=== PATIENT | male | born 1985 | race Caucasian/White ===

== ENCOUNTER 2020-07-07 13:25 | Emergency (ER) | payer BC ==
[2020-07-07] MEDS ORDERED: Sodium Chloride 0.9% 10 ML Syringe FLUSH PRN (14:57)
[2020-07-07] MEDS ORDERED: Ondansetron 4 MG/2 ML SDV IVPUSH ONE (15:00)
[2020-07-07] MEDS ORDERED: HYDROmorphone 1 MG/ML Syringe IVPUSH ONE (15:00)
[2020-07-07] MEDS ORDERED: Sodium Chloride 0.9% 1,000 ML IV ONE (15:00)
--- NOTE | 2020-07-07 15:22 | EDM.PDOC ---
ED HPI GENERAL MEDICAL PROBLEM - General Chief Complaint: Abdominal Pain Stated Complaint: ABDOMINAL PAIN Time Seen by Provider: 07/07/20 14:45 Source of Information: Reports: Patient, RN Notes Reviewed History Limitations: Reports: No Limitations - History of Present Illness INITIAL COMMENTS - FREE TEXT/NARRATIVE: Patient is 35 year old male who presents to the ED for his lower abdomen pain. He notes that this started this AM; and this seems to be located mostly in his lower abdomen. He states that is just hurts and is worsening. States he woke up with the pain. He has not had this pain before ever. He denies any fever/ chills, n/v/d, cough/SOB. He states that he has had a normal BM this am for himself. He denies any urinary issues. He has no primary care provider. This pain does not seem to radiate anywhere. Bilateral Lower Abdomen Pain Score (Numeric/FACES): 8 - Related Data Allergies Allergy/AdvReac Type Severity Reaction Status Date / Time cefaclor [From [facility]] Allergy Severe Cannot Verified 07/07/20 14:06 Remember Home Meds: Home Meds . [No Known Home Meds] 07/07/20 [History] Past Medical History - Past Health History Medical/Surgical History: Denies Medical/Surgical History Social & Family History - Tobacco Use Tobacco Use Status *Q: Never Tobacco User - Caffeine Use Caffeine Use: Reports: Coffee - Recreational Drug Use Recreational Drug Use: No ED ROS GENERAL - Review of Systems Review Of Systems: Comprehensive ROS is negative, except as noted in HPI. ED EXAM, GI/ABD - Physical Exam Exam: See Below Exam Limited By: No Limitations General Appearance: Alert, WD/WN, No Apparent Distress Eyes: Bilateral: Normal Appearance Respiratory/Chest: No Respiratory Distress, Lungs Clear, Normal Breath Sounds, No Accessory Muscle Use, Chest Non-Tender Cardiovascular: Normal Peripheral Pulses, Regular Rate, Rhythm, No Edema GI/Abdominal Exam: Normal Bowel Sounds, Soft, No Distention, No Mass, Tender (lower abdomen mainly) Extremities: Normal Inspection, Normal Capillary Refill Neurological: Alert, Oriented, Normal Cognition, No Motor/Sensory Deficits Psychiatric: Normal Affect, Normal Mood Skin Exam: Warm, Dry, Intact, Normal Color, No Rash Course - Vital Signs Last Recorded V/S: Last Vital Signs Temp 96.3 F L 07/07/20 14:03 Pulse 80 04/19/21 14:03 Resp 16 07/07/20 14:03 BP 138/85 07/07/20 14:03 Pulse Ox 97 07/07/20 14:03 - Orders/Labs/Meds Orders: Active Orders 24 hr Category Date Time Status Peripheral IV Care [RC] . DIRECTED Care 07/07/20 14:57 Active CULTURE URINE [RM] Routine Lab 07/07/20 17:47 Ordered Sodium Chloride 0.9% [Saline Flush] Med 07/07/20 14:57 Active 10 ml FLUSH ASDIRECTED PRN Peripheral IV Insertion Adult [OM.PC] Routine Oth 07/07/20 14:57 Ordered Medication Orders Sodium Chloride (Sodium Chloride 0.9% 10 Ml Syringe) 10 ml FLUSH ASDIRECTED PRN PRN Reason: Keep Vein Open Last Admin: 07/07/20 15:09 Dose: 10 ml Documented by: TRISHA Labs: Laboratory Tests 07/07/20 07/07/20 07/07/20 Range/Units 14:35 14:35 14:35 WBC 14.29 H (4.23-9.07) K/mm3 RBC 5.09 (4.63-6.08) M/mm3 Hgb 15.1 (13.7-17.5) gm/dl Hct 46.1 (40.1-51.0) % MCV 90.6 (79.0-92.2) fl MCH 29.7 (25.7-32.2) pg MCHC 32.8 (32.2-35.5) g/dl RDW Std Deviation 44.6 H (35.1-43.9) fL Plt Count 353 H (163-337) K/mm3 MPV 9.8 (9.4-12.3) fl Neut % (Auto) 86.0 H (34.0-67.9) % Lymph % (Auto) 9.0 L (21.8-53.1) % Stephens % (Auto) 4.6 L (5.3-12.2) % Eos % (Auto) 0.1 L (0.8-7.0) Baso % (Auto) 0.1 (0.1-1.2) % Neut # (Auto) 12.27 H (1.78-5.38) K/mm3 Lymph # (Auto) 1.29 L (1.32-3.57) K/mm3 Stephens # (Auto) 0.66 (0.30-0.82) K/mm3 Eos # (Auto) 0.02 L (0.04-0.54) K/mm3 Baso # (Auto) 0.02 (0.01-0.08) K/mm3 Manual Slide Review Abnormal smear Sodium 139 (136-145) mEq/L Potassium 3.8 (3.5-5.1) mEq/L Chloride 100 (98-107) mEq/L Carbon Dioxide 28 (21-32) mEq/L Anion Gap 14.8 (5-15) BUN 13 (7-18) mg/dL Creatinine 1.0 (0.7-1.3) mg/dL Est Cr Clr Drug Dosing 105.44 mL/min Estimated GFR (MDRD) > 60 (>60) mL/min BUN/Creatinine Ratio 13.0 L (14-18) Glucose 129 H (74-106) mg/dL Calcium 9.0 (8.5-10.1) mg/dL Total Bilirubin 0.5 (0.2-1.0) mg/dL AST 20 (15-37) U/L ALT 41 (16-63) U/L Alkaline Phosphatase 33 L (46-116) U/L C-Reactive Protein 1.3 H* (<1.0) mg/dL Total Protein 7.2 (6.4-8.2) g/dl Albumin 3.8 (3.4-5.0) g/dl Globulin 3.4 gm/dL Albumin/Globulin Ratio 1.1 (1-2) Urine Color (Yellow) Urine Appearance (Clear) Urine pH (5.0-8.0) Ur Specific [place] (1.005-1.030) Urine Protein (Negative) Urine Glucose (UA) (Negative) Urine Ketones (Negative) Urine Occult Blood (Negative) Urine Nitrite (Negative) Urine Bilirubin (Negative) Urine Urobilinogen (0.2-1.0) Ur Leukocyte Esterase (Negative) Urine RBC (0-5) /hpf Urine WBC (0-5) /hpf Ur Squamous Epith Cells (0-5) /hpf Urine Bacteria (FEW) /hpf Urine Mucus (FEW) /hpf 07/07/20 Range/Units 16:10 WBC (4.23-9.07) K/mm3 RBC (4.63-6.08) M/mm3 Hgb (13.7-17.5) gm/dl Hct (40.1-51.0) % MCV (79.0-92.2) fl MCH (25.7-32.2) pg MCHC (32.2-35.5) g/dl RDW Std Deviation (35.1-43.9) fL Plt Count (163-337) K/mm3 MPV (9.4-12.3) fl Neut % (Auto) (34.0-67.9) % Lymph % (Auto) (21.8-53.1) % Stephens % (Auto) (5.3-12.2) % Eos % (Auto) (0.8-7.0) Baso % (Auto) (0.1-1.2) % Neut # (Auto) (1.78-5.38) K/mm3 Lymph # (Auto) (1.32-3.57) K/mm3 Stephens # (Auto) (0.30-0.82) K/mm3 Eos # (Auto) (0.04-0.54) K/mm3 Baso # (Auto) (0.01-0.08) K/mm3 Manual Slide Review Sodium (136-145) mEq/L Potassium (3.5-5.1) mEq/L Chloride (98-107) mEq/L Carbon Dioxide (21-32) mEq/L Anion Gap (5-15) BUN (7-18) mg/dL Creatinine (0.7-1.3) mg/dL Est Cr Clr Drug Dosing mL/min Estimated GFR (MDRD) (>60) mL/min BUN/Creatinine Ratio (14-18) Glucose (74-106) mg/dL Calcium (8.5-10.1) mg/dL Total Bilirubin (0.2-1.0) mg/dL AST (15-37) U/L ALT (16-63) U/L Alkaline Phosphatase (46-116) U/L C-Reactive Protein (<1.0) mg/dL Total Protein (6.4-8.2) g/dl Albumin (3.4-5.0) g/dl Globulin gm/dL Albumin/Globulin Ratio (1-2) Urine Color Yellow (Yellow) Urine Appearance Clear (Clear) Urine pH 6.0 (5.0-8.0) Ur Specific [place] > or = 1.030 (1.005-1.030) Urine Protein Negative (Negative) Urine Glucose (UA) Negative (Negative) Urine Ketones 2+ H (Negative) Urine Occult Blood 1+ H (Negative) Urine Nitrite Negative (Negative) Urine Bilirubin Negative (Negative) Urine Urobilinogen 0.2 (0.2-1.0) Ur Leukocyte Esterase Negative (Negative) Urine RBC 5-10 H (0-5) /hpf Urine WBC 0-5 (0-5) /hpf Ur Squamous Epith Cells 0-5 (0-5) /hpf Urine Bacteria Few (FEW) /hpf Urine Mucus Moderate H (FEW) /hpf Meds: Medications Generic Name Dose Route Start Last Admin Trade Name Freq PRN Reason Stop Dose Admin Sodium Chloride 10 ml 07/07/20 14:57 07/07/20 15:09 Sodium Chloride 0.9% 10 Ml Syringe FLUSH 10 ml ASDIRECTED PRN Administration Keep Vein Open Discontinued Medications Generic Name Dose Route Start Last Admin Trade Name Freq PRN Reason Stop Dose Admin Diatrizoate Meglum/Diatrizoate Sod 90 ml 07/07/20 16:21 07/07/20 16:22 Diatrizoate Meglumine/Diatrizoate Sodium 37% 120 Ml Bottle PO 07/07/20 16:22 45 ml ONETIME ONE Administration Hydromorphone HCl 1 mg 07/07/20 15:00 07/07/20 15:08 Hydromorphone 1 Mg/Ml Syringe IVPUSH 07/07/20 15:01 1 mg ONETIME ONE Administration Sodium Chloride 1,000 mls @ 999 mls/hr 07/07/20 15:00 07/07/20 15:07 Normal Saline IV 07/07/20 16:00 999 mls/hr ONETIME ONE Administration Iopamidol 100 ml 07/07/20 16:21 07/07/20 16:22 Iopamidol 612 Mg/Ml 100 Ml Bottle IVPUSH 07/07/20 16:22 100 ml ONETIME ONE Administration Ondansetron HCl 4 mg 07/07/20 15:00 07/07/20 15:07 Ondansetron 4 Mg/2 Ml Sdv IVPUSH 07/07/20 15:01 4 mg ONETIME ONE Administration Sodium Chloride 10 ml 07/07/20 16:21 07/07/20 16:22 Sodium Chloride 0.9% 10 Ml Syringe FLUSH 07/07/20 16:22 10 ml ONETIME ONE Administration - Re-Assessments/Exams Free Text/Narrative Re-Assessment/Exam: 07/07/20 15:21 Patient presents to the ED for his abdomen pain. Will get IV, labs, and a CT for further evaluation. He will be given some IV Dilaudid, nausea meds and some fluids. 07/07/20 17:35 The patient's laboratory evaluation demonstrated a mildly elevated white count at 14.29 with 86% neutrophils and 0 bands, metabolic panel essentially unremarkable. CRP is 1.3 CT demonstrated no acute abnormalities, however the appendix was not visualized. There was a small infiltrate found on the CT in the right lower lung, chest x-ray was obtained, and demonstrates no other acute findings. I did go over the CT with Dr. Calixto, he states that it was very hard to find the appendix, at this point in time there are no acute findings to suggest further bacterial infection. I will have him follow-up in clinic, sometime tomorrow or the next day to make sure that his symptoms are getting better as expected. Departure - Departure Time of Disposition: 17:53 Disposition: Home, Self-Care 01 Condition: Good Clinical Impression: Lower abdominal pain - Discharge Information *PRESCRIPTION DRUG MONITORING PROGRAM REVIEWED*: No *COPY OF PRESCRIPTION DRUG MONITORING REPORT IN PATIENT HOMER: No Instructions: Abdominal Pain, Adult, [id number] Referrals: Isabel Spears MD [Physician] - 1 Day Forms: ED Department Discharge Additional Instructions: You were evaluated in the ER today for your lower abdominal pain. Thorough examination was done at today's visit, your CT did not specifically see your appendix however. With your mildly elevated white blood cell count, and mildly elevated CRP level, this is concerning for ongoing bacterial infection that was just not identified on today's exam. Highly and strongly recommend you follow-up with Dr. Lomeli, tomorrow for a clinic visit, to make sure that your symptoms are getting better as expected. Please call her clinic at [phone] as early as you can in the morning and te ll them that you need to be seen in her clinic and you were seen in the ER today, she should be awaiting your call an appointment. You may take Tylenol or ibuprofen every 6 hours as needed for further ongoing discomfort. Please try to stick to more of a clear liquid diet over the next 24 to 48 hours, to see if this does not help also relieve some of your symptoms. Please return to the ER at any time if your symptoms should change or worsen, or if you should develop any fevers, localizing pain, or nausea/vomiting, so much that you cannot keep any food or fluids down. Sepsis Event Note (ED) - Evaluation Sepsis Screening Result: No Definite Risk - Focused Exam Vital Signs: Vital Signs Temp Pulse Resp BP Pulse Ox 07/07/20 14:03 96.3 F L 80 16 138/85 97 - My Orders Last 24 Hours: My Active Orders 07/07/20 14:57 Peripheral IV Care [RC] . DIRECTED Sodium Chloride 0.9% [Saline Flush] 10 ml FLUSH ASDIRECTED PRN Peripheral IV Insertion Adult [OM.PC] Routine 07/07/20 17:47 CULTURE URINE [RM] Routine - Assessment/Plan Last 24 Hours: My Active Orders 07/07/20 14:57 Peripheral IV Care [RC] . DIRECTED Sodium Chloride 0.9% [Saline Flush] 10 ml FLUSH ASDIRECTED PRN Peripheral IV Insertion Adult [OM.PC] Routine 07/07/20 17:47 CULTURE URINE [RM] Routine
[2020-07-07] MEDS ORDERED: Sodium Chloride 0.9% 10 ML Syringe FLUSH ONE (16:21)
[2020-07-07] MEDS ORDERED: Diatrizoate Meglumine/Diatrizoate Sodium 37% 120 ML Bottle PO ONE (16:21)
[2020-07-07] MEDS ORDERED: Iopamidol 612 MG/ML 100 ML Bottle IVPUSH ONE (16:21)
--- NOTE | 2020-07-07 16:47 | CT ---
CT abdomen and pelvis Technique: Multiple axial sections were obtained from above the dome of the diaphragm inferiorly through the pubic symphysis. Intravenous and oral contrast was utilized. Delayed images were obtained through the bladder. Reconstructed coronal and sagittal were obtained. Findings: Slight parenchymal density is noted within the medial right lung base. This area represents either a very minimal area of pneumonia or atelectasis as well as possible scarring. Liver shows no focal parenchymal abnormality. Spleen appears normal. Gallbladder contains no calcified gallstones. Pancreas is within normal limits. Adrenal glands show no nodule. Kidneys show symmetric contrast enhancement with no hydronephrosis or mass. Abdominal aorta shows no aneurysm. No retroperitoneal adenopathy is appreciated. No mesenteric abnormalities are seen. No pelvic mass or adenopathy is noted. Bladder wall is slightly thickened most likely relating to nondistention. Prostate calcifications are seen. There is slight bowel dilatation which contains contrast which is believed to be within normal limits. Appendix is not visualized. Delayed images show contrast within the distal ureters and within the bladder. Bone window settings were reviewed which show mild scattered degenerative change within the spine. No acute osseous abnormality is appreciated. Impression: 1. Slight parenchymal density within the medial right lung base. Differential as noted above. 2. Nothing acute is otherwise seen. Diagnostic code #2
--- NOTE | 2020-07-07 17:22 | CR ---
Chest: 2 views of the chest are obtained. Comparison: No prior chest imaging is available. Previous abdominal and pelvic CT study performed earlier on the same day (4:18 PM). Heart size and mediastinum are within normal limits. Lungs are clear with no acute parenchymal change. Ossification is noted off the inferior right clavicle compatible with old injury involving the coracoclavicular joint. Bony structures are otherwise unremarkable. Impression: 1. Incidental finding. 2. Nothing acute is appreciated on 2 view chest x-ray. Note: Finding on abdominal and pelvic CT within the right medial lung base is too small to visualize by chest x-ray. Diagnostic code #2
== END 2020-07-07 18:05 | disposition home or self-care (01) ==
LOC: JD.ED 13:25
DX: R10.30 Lower abdominal pain, unspecified (principal); Z88.1 Allergy status to other antibiotic agents
CPT/HCPCS: 36415; 71046; 74177; 80053; 81001; 85025; 86140; 87086; 96374; 96375; 99284; J1170; J2405; J7030; Q9963; Q9967